=== PATIENT | male | born 1975 | race Caucasian/White ===

== ENCOUNTER 2024-10-03 17:08 | Emergency (ER) | payer OTHER, SELFPAY ==
[2024-10-03 17:17] VITALS: BP 126/82; PULSE 85; O2SAT 97
[2024-10-03 17:30] VITALS: BP 118/75; PULSE 83; RESP 16; TEMP 36.9; O2SAT 96; BMI 22.3
--- NOTE | 2024-10-03 17:35 | ECG_ITS ---
Test Reason : OVERDOSE Blood Pressure : */* mmHG Vent. Rate : 82 BPM Atrial Rate : 82 BPM P-R Int : 168 ms QRS Dur : 84 ms QT Int : 392 ms P-R-T Axes : 66 55 50 degrees QTcB Int : 457 ms Normal sinus rhythm with sinus arrhythmia Normal ECG No previous ECGs available Referred By: Alvin Brown Electronically Signed By: CHAPIS ALCALA
[2024-10-03 18:00] VITALS: BP 118/78; PULSE 80; RESP 14; TEMP 36.9; O2SAT 97
[2024-10-03 19:36] VITALS: BP 106/59; PULSE 85; RESP 12; TEMP 36.7; O2SAT 97
--- NOTE | 2024-10-03 19:49 | ED.GENADULT ---
HPI - General Adult General Chief complaint: Overdose Stated complaint: ETOH Time Seen by Provider: 10/03/24 19:48 Source: patient and EMS Mode of arrival: EMS Limitations: no limitations History of Present Illness ED Provider: Agustin GÓMEZ HPI narrative: The patient is a 49-year-old male who was brought to the ED by EMS after he was found drowsy in front of a stop [place] shop on [address]. The patient awoke easily to verbal stimulus and did not require any Narcan, admits to smoking a few bags of an unknown substance. Patient refuses to discuss what the substance was, or what he suspected the substance was, but does admit he is currently undergoing methadone treatment. The patient denies alcohol use. The patient in the ED denies any acute somatic complaint, is requesting discharge. The patient denies suicidal or homicidal ideation and states substance use was recreational. Related Data Allergies Allergy/AdvReac Type Severity Reaction Status Date / Time No Known Allergies Allergy Verified 10/03/24 17:36 Review of Systems Review of Systems: Yes all other systems are reviewed and are negative PMFSH Past Medical History Medical History (Updated 10/04/24 @ 00:01 by Eileen Mckay) Polysubstance abuse Esophageal cancer Surgical History (Updated 10/03/24 @ 17:40 by Katlyn Chadwick RN) History of esophagectomy Social History Social History Smoked in Last 30 Days: Yes Use of substances other than those prescribed or required for medical reasons: Yes Substance Use Type: Amphetamines and Heroin Advance Directives: No Advance Directives Information Provided: No Do you have a plan to hurt others: No Plan Physical Exam ED Vital Signs: Vital Signs - 24 hr 10/03/24 17:30 10/03/24 18:00 10/03/24 19:36 Temperature 98.4 F 98.4 F 98.0 F Pulse Rate 83 80 85 Respiratory Rate 16 14 12 Blood Pressure 118/75 118/78 106/59 L Pulse Oximetry 96 97 97 Oxygen Delivery Method Room Air Room Air Room Air 10/03/24 20:50 Temperature 98.0 F Pulse Rate 85 Respiratory Rate 12 Blood Pressure 106/59 L Pulse Oximetry 97 Oxygen Delivery Method Room Air BMI result Body Mass Index 22.3 CONSTITUTIONAL: The patient appears moderately unkempt, otherwise non-toxic, well nourished and in no acute distress. Vital signs as documented. HEAD: Atraumatic, normocephalic. EYES: EOMs grossly intact, pupils equal, conjunctiva clear, no exudate. ENT: Nares patent, no discharge. Airway patent, no audible stridor, visible mucosa is pink and moist without noted lesions. NECK: Trachea is midline, no obvious masses or gross abnormalities. CHEST: Symmetric movement, normal appearance. LUNGS: LS present and CTAB, no w/r/r. Non-labored work of breathing. CARDIAC: Regular Rhythm, S1/S2 appreciated, no murmurs, rubs or gallops. ABDOMEN: Abdomen soft and non-tender x4 quadrants, no palpable masses or organomegaly. : Deferred. EXTREMITIES: Normal tone, moves all extremities spontaneously without reported pain. No obvious acute injury or deformity noted. NEURO: Alert and oriented x3, CN II-XII appear grossly intact. Cerebellar Functioning grossly intact. No obvious sensory or motor deficits. Speech clear and appropriate. PSYCH: normal affect, appropriate eye contact, fluid speech, with appropriate response to questioning. No reported suicidality or homicidality. Patient does not appear to be responding to internal stimuli. SKIN: Warm, dry, color appropriate, normal turgor. No rashes noted. Medical Decision Making Medical Decision Making MDM Narrative: 9:04 PM 10/03/2024 (Navid GÓMEZ): Patient is a 49-year-old male presenting to the ED for evaluation after found drowsy in front of a local grocery store, admits to smoking an unknown substance?, however woke easily to verbal stimuli and did not require any Narcan administration. Patient does admit he is currently on methadone treatment, but refuses to speculate what he thought the substance was he was smoking. The patient has no evidence of acute injury, vital signs are reassuring, exam is benign. Patient is alert and oriented without suicidal ideation or evidence of delusions or hallucinations, ambulates with a steady gait, is eating and drinking without difficulty. The patient was offered substance abuse resources and recovery team consultation, patient declined. The patient will be discharged to his own care with take-home Narcan. Admission/Observation Consideration of admission/observation: Escalation of care including admission/observation considered External Record Review External record reviewed: Outpatient record (No previous ED visits) Discharge Plan Discharge Clinical Impression: Opioid abuse with intoxication Patient Disposition: Home, Self-Care Instructions: Narcotic Withdrawal (ED), Narcotic Use Disorder (ED) Additional Instructions: Thank you for choosing [facility]'s Emergency Department for your care today. At this time there is no evidence of an acute process requiring admission to the hospital or continued ED observation, and it is safe to discharge you. You were seen in the emergency department today for evaluation of a suspected opiate overdose. Please do not use heroin or other narcotics as they are generally not good for your health and can put you at risk for respiratory arrest, anoxic brain injury, severely decreased quality of life, and potentially an otherwise avoidable . You declined consultation with our recovery team for substance abuse treatment referral. Despite your decision to declined consultation today we still recommend you make use of all available personal and community-based resources to attempt to become sober from recreational drugs. Please stay well hydrated and get plenty of rest. Please follow up with your primary care physician for re-evaluation, additional management of your symptoms, and continued preventative care. If you do not have a primary care physician, please call the [facility] at [phone] to establish a new primary care physician. While waiting to establish your new primary care physician, you can call our [facility] at [phone] for non-emergency needs. Please return to the emergency department if you develop a severe or sudden change in your symptoms, a fever over 100.4 that does not improve with Tylenol or Ibuprofen, recurrent vomiting, or any other new or worsening symptoms or concerns. Referrals: Physician,Jr J [Primary Care Provider, Medical] Clinical Impression: Opioid abuse with intoxication Interventions: ED Discharge Assessment Last Done: 10/03/24 20:50 Discharge Date/Time: 10/03/24 20:50 Print Language: Belarusian
--- NOTE | 2024-10-03 19:53 | PC.NURSE ---
Pt given sandwich and drink.
--- NOTE | 2024-10-03 20:28 | PC.NURSE ---
Provider notified patient is ready to leave. Pt informed physician aware.
[2024-10-03 20:50] VITALS: BP 106/59; PULSE 85; RESP 12; TEMP 36.7; O2SAT 97
== END 2024-10-03 20:50 | disposition home or self-care (01) ==
PROVIDERS: Emergency Provider Emergency Medicine
DX: F11.129 Opioid abuse with intoxication, unspecified (principal); I49.8 Other specified cardiac arrhythmias
CPT/HCPCS: 93005; 99283; 99285

== ENCOUNTER → 2024-10-03 17:35 | Outpatient (BNV) | payer OTHER, SELFPAY | PROVIDERS: Emergency Provider Emergency Medicine; Visit Provider Internal Medicine | DX: T50.901A Poisoning by unspecified drugs, medicaments and biological substances, accidental (unintentional), initial encounter (principal) | CPT/HCPCS: 93010 ==